=== PATIENT | female | born 1935 | race Caucasian/White ===

== ENCOUNTER → 2017-10-10 | Outpatient (CLI) | payer OTHER ==
--- NOTE | ~2017-10-10 | 2DMMODE ---
[facility] [address] [place] [address] 2 D/M-MODE ECHOCARDIOGRAM Name: BILL DRAKE Room #: REG [facility]#: [id number] Admission: 10/10/17 Attend Phys: Ramo Wiley Discharge: Date of : 35 Date of Service: 10/10/17 1440 Report #: [id number] THIS REPORT FOR: //name// APPROVED REPORT Study performed: 10/10/2017 12:52:33 EXAM: Comprehensive 2D, Doppler, and color-flow Echocardiogram Patient Location: Out-Patient Status: routine BSA: 1.62 HR: 74 bpm BP: 100/60 mmHg Rhythm: Pacemaker Other Information Study Quality: Adequate Indications Mitral regurgitation, HTN. Hx: CAD, pacemaker 2D Dimensions RVDd: 37.59 mm LVEF(%): 54.26 (>50%) IVSd: 10.10 (7-11mm) LVOT Diam: 17.64 (18-24mm) LVDd: 39.04 mm PWd: 8.48 (7-11mm) LVDs: 28.26 (25-40mm) Aortic Root: 28.98 mm Olivares's LVEF: 54.26 % Volumes Left Atrial Volume (Systole) Single Plane 4CH: 73.93 mL Single Plane 2CH: 61.57 mL LA ESV Index: 45.00 mL/m2 Aortic Valve AoV Peak Nikhil.: 1.20 m/s AO Peak Gr.: 5.71 mmHg LVOT Max P.93 mmHg LVOT Max V: 0.86 m/s CARY Vmax: 1.75 cm2 Mitral Valve E/A Ratio: 1.1 MV Decel. Time: 268.68 ms [facility] [address] [place] [address] 2 D/M-MODE ECHOCARDIOGRAM Name: BILL DRAKE Room #: [facility]#: [id number] Admission: 10/10/17 Attend Phys: Ramo Wiley Discharge: Date of : 35 Date of Service: 10/10/17 1440 Report #: [id number] MV E Max Nikhil.: 1.15 m/s MV A Nikhil.: 1.04 m/s MV PHT: 77.92 ms IVRT: 101.50 ms Pulmonary Valve PV Peak Nikhil.: 0.73 m/s PV Peak Gr.: 2.12 mmHg Pulmonary Vein P Vein S: 0.44 m/s P Vein D: 0.30 m/s P Vein S/D Ratio: 1.47 Tricuspid Valve TR Peak Nikhil.: 2.88 m/s RAP Estimate: 5.00 mmHg TR Peak Gr.: 33.20 mmHg PA Pressure: 38.00 mmHg Left Ventricle The left ventricle is normal size. There is normal left ventricular wall thickness. Left ventricular systolic function is normal. Discordant distal septal motion probably from RV pacing. LVEF is 50-55%. Moderate diastolic dysfunction is present (pseudonormal filling). Right Ventricle The right ventricle is normal size. The right ventricular systolic function is normal. Atria Left atrium is severely dilated. Right atrium is moderately dilated. Pacemaker lead is present in the right atrium. Aortic Valve Aortic valve leaflets are mildly thickened. Mild aortic regurgitation. There is no aortic valvular stenosis. Mitral Valve Mitral valve leaflets are thickened. Moderate mitral annular calcification. Moderate to moderately severe eccentric mitral regurgitation No evidence of mitral valve stenosis. Tricuspid Valve The tricuspid valve is normal in structure. Severe tricuspid regurgitation. Eccentric jet. Estimated PAP is 35-40mmHg. [facility] [address] [place] [address] 2 D/M-MODE ECHOCARDIOGRAM Name: BILL DRAKE Room #: REG [facility].#: [id number] Admission: 10/10/17 Attend Phys: Ramo Wiley Discharge: Date of : 35 Date of Service: 10/10/17 1440 Report #: [id number] Pulmonic Valve Pulmonic valve is not well visualized. Trace pulmonic regurgitation. Great Vessels The aortic root is normal in size. Ascending aorta is not well visualized. IVC is normal in size and collapses >50% with inspiration. Pericardium There is no pericardial effusion. <Conclusion> Left ventricular systolic function is normal. Discordant distal septal motion probably from RV pacing. LVEF is 50-55%. Moderate diastolic dysfunction Both atria are dilated. Pacing wires in right heart Aortic valve leaflets are mildly thickened. Mild aortic regurgitation, no stenosis. Mitral valve leaflets are thickened. Moderate mitral annular calcification. Moderate to moderately severe eccentric mitral regurgitation Severe tricuspid regurgitation. Estimated pulmonary artery pressure of 35-40mmHg. There is no pericardial effusion. <ELECTRONICALLY SIGNED> By: Elier Hudson MD, FACC 10/10/17 1440 1440 144 Elier Hudson MD, FACC /INF
== END ==
LOC: NUC 01-17 10:51 → CV 12:35
DX: I08.3 Combined rheumatic disorders of mitral, aortic and tricuspid valves (principal); I10 Essential (primary) hypertension; I25.10 Atherosclerotic heart disease of native coronary artery without angina pectoris; Z95.0 Presence of cardiac pacemaker